=== PATIENT | female | born 1995 | race Caucasian/White ===

== ENCOUNTER 2020-12-24 15:33 | Outpatient (RCR) | payer OTHER, SELFPAY ==
[2019-08-16 18:05] VITALS: BMI 24.6
== END 2021-02-16 23:59 ==
LOC: IMMUN 15:33
PROVIDERS: Referring Provider Family Medicine; Visit Provider Family Medicine
DX: Z23 Encounter for immunization (principal)
CPT/HCPCS: 0001A; 0002A; 91300